=== PATIENT | female | born 1985 ===

== ENCOUNTER 2017-06-04 22:41 | Emergency (ER) | payer MEDICAID ==
[2017-06-04 22:41] VITALS: BMI 38.7
--- NOTE | 2017-06-04 23:33 | ED PDOC ---
HPI: Abdomen Time Seen by Provider: 06/04/17 23:24 Chief Complaint (Nursing): Headache Chief Complaint (Provider): abd pain, vomiting, hematemesis History Per: Patient Additional Complaint(s): 31-year-old female presents to emergency department with generalized abdominal pain that started 4 days ago but worse today. Patient states she vomited 3 times and noticed blood in vomit time. She has upper abdominal pain mostly localized epigastric region. Patient's also has migraine headache and took Advil but could not keep this down. PMD: [facility] Past Medical History Reviewed: Historical Data, Nursing Documentation, Vital Signs Vital Signs: Last Vital Signs Temp 98.2 F 06/04/17 23:04 Pulse Resp 16 06/04/17 23:04 BP 114/82 06/04/17 23:04 Pulse Ox - Medical History PMH: Migraine - Surgical History Surgical History: (x 2) - Family History Family History: States: No Known Family Hx - Living Arrangements Living Arrangements: With Family - Social History Current smoker - smoking cessation education provided: No Alcohol: None Drugs: Denies - Home Medications Home Medications: Ambulatory Orders Medication Instructions Recorded Multivitamin and [id number] 2 tab PO 06/29/14 [] - Allergies Allergies/Adverse Reactions: Allergies Allergy/AdvReac Type Severity Reaction Status Date / Time No Known Allergies Allergy Unverified 01/26/13 13:33 Review of Systems ROS Statement: Except As Marked, All Systems Reviewed And Found Negative Constitutional: Negative for: Fever, Chills Cardiovascular: Negative for: Chest Pain Respiratory: Positive for: Cough (slight) Gastrointestinal: Positive for: Nausea, Vomiting, Abdominal Pain, Hematemesis. Negative for: Diarrhea, Constipation, Melena, Hematochezia, Rectal Pain Neurological: Positive for: Headache. Negative for: Dizziness Physical Exam - Reviewed Nursing Documentation Reviewed: Yes Vital Signs Reviewed: Yes - Physical Exam Appears: Positive for: Well, Non-toxic, No Acute Distress Skin: Negative for: Rash Eye Exam: Positive for: Normal appearance, EOMI, PERRL Cardiovascular/Chest: Positive for: Regular Rate, Rhythm Respiratory: Positive for: Normal Breath Sounds Gastrointestinal/Abdominal: Positive for: Soft, Tenderness (epigastric ). Negative for: Distended, Guarding, Rebound Back: Negative for: L CVA Tenderness, R CVA Tenderness Extremity: Positive for: Normal ROM Neurologic/Psych: Positive for: Alert, Oriented Medical Decision Making Medical Decision Makin-year-old female with abdominal pain, hematemesis and headache Plan: Urine dip and test CBC CMP PT PTT CT abd and pelvis with IV contrast IVF IV zofran IV toradol Disposition - Clinical Impression Clinical Impression: Hematemesis, Abdominal pain - Patient ED Disposition Is Patient to be Admitted: Transfer of Care - Disposition Disposition: Transfer of Care Disposition Time: 23:57 Condition: STABLE Forms: [employer] (Mauritanian) Patient Signed Over To: Will Sims Handoff Comments: Signed out pending diagnostic testing results and final disposition
[2017-06-04] MEDS ORDERED: Sodium Chloride 0.9% 1,000 ML IV STA (23:34)
[2017-06-05 00:29] LABS: BASO # 0.1 K/uL (0.0-0.2); EOS # 0.1 K/uL (0.0-0.7); EOS % 0.9 % (0.0-4.0); HEMOGLOBIN 11.9 g/dL (12.0-16.0); LYMPH # 1.6 K/uL (1.0-4.3); LYMPH % 16.2 % (20.0-40.0); MEAN CORPUSCULAR HEMOGLOBIN 28.4 pg (27.0-31.0); MEAN CORPUSCULAR HGB CONC 33.8 g/dL (33.0-37.0); MEAN PLATELET VOLUME 8.2 fl (7.2-11.7); MONO # 0.4 K/uL (0.0-0.8); MONO % 4.2 % (0.0-10.0); NEUT # 7.7 K/uL (1.8-7.0); NEUT % 77.7 % (50.0-75.0); RBC 4.18 Mil/uL (3.80-5.20); RED CELL DISTRIBUTION WIDTH 12.9 % (11.5-14.5)
[2017-06-05 00:43] LABS: ALB/GLOB RATIO 1.2 (1.0-2.1); ALBUMIN 4.3 g/dL (3.5-5.0); ALT/SGPT 75 U/L (9-52); AST/SGOT 80 U/L (14-36); BLOOD UREA NITROGEN 13 mg/dl (7-17); CALCIUM 9.4 mg/dL (8.4-10.2); GFR AFRICAN-AMERICAN > 60; GFR NON-AFRICAN AMERICAN > 60
[2017-06-05 00:54] LABS: PARTIAL THROMBOPLASTIN TIME 31.1 Seconds (25.6-37.1); PROTHROMBIN TIME 11.3 Seconds (9.8-13.1)
[2017-06-05 01:19] VITALS: RESP 18; O2SAT 99
[2017-06-05] MEDS ORDERED: Sodium Chloride 0.9% 100 ML ONE (01:40)
[2017-06-05] MEDS ORDERED: Iohexol 300 100 ML IJ ONE (01:40)
--- NOTE | 2017-06-05 02:43 | CT ---
EXAM: CT Abdomen and Pelvis With Intravenous Contrast CLINICAL HISTORY: 31 years old, female; Pain; Abdominal pain; Epigastric; Additional info: Upper abd pain, hematemesis TECHNIQUE: Axial computed tomography images of the abdomen and pelvis with intravenous contrast. All CT scans at this facility use one or more dose reduction techniques, viz.: automated exposure control; ma/kV adjustment per patient size (including targeted exams where dose is matched to indication; i.e. head); or iterative reconstruction technique. Coronal and sagittal reformatted images were created and reviewed. CONTRAST: 95 mL of omnipaque administered intravenously. COMPARISON: No relevant prior studies available. FINDINGS: Lower thorax: No acute findings. ABDOMEN: Liver: There is a diffuse decrease in hepatic parenchymal density, consistent with fatty infiltration. The liver is enlarged measuring 23 cm. Gallbladder and bile ducts: The gallbladder is thick walled. No calcified stones. No ductal dilation. Pancreas: Unremarkable. No mass. No ductal dilation. Spleen: Unremarkable. No splenomegaly. Adrenals: Unremarkable. No mass. Kidneys and ureters: Unremarkable. No solid mass. No hydronephrosis. Stomach and bowel: Unremarkable. No obstruction. No mucosal thickening. Appendix: No findings to suggest acute appendicitis. Normal appendix. PELVIS: Bladder: Unremarkable. No mass. Reproductive: 1.9 cm low-density structure in the left pelvis consistent with an ovarian follicle. ABDOMEN and PELVIS: Intraperitoneal space: Unremarkable. No free air. No significant fluid collection. Bones/joints: No acute fracture. No dislocation. Soft tissues: Unremarkable. Vasculature: Unremarkable. No abdominal aortic aneurysm. Lymph nodes: Unremarkable. No enlarged lymph nodes. Tubes, lines and devices: An intrauterine device is present. IMPRESSION: Thick walled gallbladder. Clinical correlation with laboratory values recommended exclude acute cholecystitis. Right upper quadrant ultrasound could be obtained if clinically indicated. Fatty liver.
--- NOTE | 2017-06-05 03:25 | ED PDOC ---
- Laboratory Results Result Diagrams: 06/04/17 23:55 06/04/17 23:55 - ECG O2 Sat by Pulse Oximetry: 99 - Progress ED Course And Treament: 0000 Signed out to me pending labs and CT report. 0030 On my initial evaluation, pt. in no distress. States headache is present but has improved. Reports that she has not had any vomiting since coming to ED. Further states that last episode of vomiting had the smallest amount of blood since the vomiting began. Denies abdominal pain. 0242 CT abd/pelvis w/ IV contrast: Thick walled gallbladder. Clinical correlation with laboratory values recommended exclude acute cholecystitis. Right upper quadrant ultrasound could be obtained if clinically indicated. Fatty liver Patient informed of results and states that in 2013 she was dx with an "infection in my gallbladder" but was at that time and she refused surgery. Reports headache has completely resolved and that she does not have any pain in her abdomen. Abd soft and non-tender to deep palpation. Negative barreto's sign. Instructed to f/u with [facility] for further evaluation. Disposition - Clinical Impression Clinical Impression: Hematemesis, Acute headache - POA Present On Arrival: None - Disposition Disposition: Routine/Home Disposition Time: 02:42 Condition: STABLE Prescriptions: Metoclopramide [Reglan] 10 mg PO Q8 PRN #15 tab PRN Reason: nausea or headache Instructions: Headache, Adult (DC), Acute Headache (ED) Forms: Pager (Yi) Print Language: SLOVAK
[2017-06-05 03:30] VITALS: BP 112/64; PULSE 62; TEMP 98.3
--- NOTE | 2017-06-05 09:09 | RAD ---
HISTORY: cough COMPARISON: No prior. FINDINGS: LUNGS: No active pulmonary disease. PLEURA: No significant pleural effusion identified, no pneumothorax apparent. CARDIOVASCULAR: Normal. OSSEOUS STRUCTURES: No significant abnormalities. VISUALIZED UPPER ABDOMEN: Normal. OTHER FINDINGS: None. IMPRESSION: No acute cardiopulmonary disease appreciated.
== END 2017-06-05 03:38 | disposition home or self-care (01) ==
LOC: H.ER 22:41
DX: R10.9 Unspecified abdominal pain (principal); K92.0 Hematemesis; K76.0 Fatty (change of) liver, not elsewhere classified
CPT/HCPCS: 71045; 74177; 80053; 81025; 85025; 85610; 85730; 96374; 96375; 99285; J1885; J2405; J7040; Q9967

== ENCOUNTER 2018-07-15 11:26 | Emergency (ER) | payer SELFPAY ==
[2018-07-15 12:25] VITALS: BMI 33.5
[2018-07-15] MEDS ORDERED: Sodium Chloride 0.9% 1,000 ML IV STA (12:26)
--- NOTE | 2018-07-15 12:33 | ED PDOC ---
HPI: Headache Time Seen by Provider: 07/15/18 12:11 Chief Complaint (Nursing): Headache Chief Complaint (Provider): Headache History Per: Patient History/Exam Limitations: no limitations Onset/Duration Of Symptoms: Other (ongoing) Current Symptoms Are (Timing): Still Present Associated Symptoms: Photophobia, Nausea Additional Complaint(s): 32 year old female with a history of headaches that ongoing for the last 2 months since she stopped breast feeding. Patient reports the headaches are frequent with increased photophobia, sensitivity and localized with nausea. Currently, she is concerned and requests she would like a CT scan for further evaluation. Otherwise, she denies any other symptoms. Past Medical History Reviewed: Historical Data, Nursing Documentation, Vital Signs - Medical History PMH: Migraine - Surgical History Surgical History: (x 2) - Family History Family History: States: No Known Family Hx - Immunization History Hx Tetanus Toxoid Vaccination: No Hx Influenza Vaccination: Yes Hx Pneumococcal Vaccination: No - Home Medications Home Medications: Ambulatory Orders Medication Instructions Recorded Multivitamin and [id number] 2 tab PO 06/29/14 [] Metoclopramide [Reglan] 10 mg PO Q8 PRN #15 tab 06/05/17 Cephalexin [Keflex] 500 mg PO TID #15 capsule 07/15/18 - Allergies Allergies/Adverse Reactions: Allergies Allergy/AdvReac Type Severity Reaction Status Date / Time No Known Allergies Allergy Unverified 01/26/13 13:33 Review of Systems ROS Statement: Except As Marked, All Systems Reviewed And Found Negative Constitutional: Negative for: Fever, Chills Gastrointestinal: Positive for: Nausea. Negative for: Vomiting, Diarrhea Neurological: Positive for: Headache. Negative for: Change in Speech, Dizziness Physical Exam - Reviewed Nursing Documentation Reviewed: Yes Vital Signs Reviewed: Yes - Physical Exam Appears: Positive for: Well, Non-toxic, No Acute Distress Head Exam: Positive for: ATRAUMATIC, NORMAL INSPECTION, NORMOCEPHALIC Skin: Positive for: Normal Color, Warm, DRY Eye Exam: Positive for: EOMI, Normal appearance, PERRL Gastrointestinal/Abdominal: Positive for: Soft. Negative for: Tenderness Neurological/Psych: Positive for: Awake, Alert, Normal Tone, Symmetric/Intact Strength, Oriented (x3), Gait (steady). Negative for: Lethargic, Motor/Sensory Deficits, Facial Droop - Laboratory Results Result Diagrams: 07/15/18 12:42 04 12:42 Urine POC: Negative Urine dip results: Positive for: Leukocyte Esterase, Blood, Nitrate - ECG Pulse Ox Interpretation: Normal Medical Decision Making Medical Decision Making: Time: 12:16 Plan: ED urine dipstick Head w/ contrast CT CMP CBC w/ differential Normal saline 500 mls/hr Reglan 10mg Urine culture stat 12:16 Risks and benefits discussed with the patient who requests for a CT scan to be done. 12:49 Patient is now refusing a CT scan Scribe Attestation: Documented by Deb Anaya, acting as a scribe for Guille Grey PA-C. Provider Scribe Attestation: All medical record entries made by the Scribe were at my direction and personally dictated by me. I have reviewed the chart and agree that the record accurately reflects my personal performance of the history, physical exam, medical decision making, and the department course for this patient. I have also personally directed, reviewed, and agree with the discharge instructions and disposition. Disposition - Clinical Impression Clinical Impression: Migraine, UTI (urinary tract infection) - Patient ED Disposition Is Patient to be Admitted: No - Disposition Referrals: [facility] [Outside] Disposition: Routine/Home Disposition Time: 13:57 Condition: FAIR Prescriptions: Cephalexin [Keflex] 500 mg PO TID #15 capsule Instructions: Urinary Tract Infections in Adults, Migraine Headache (DC)
[2018-07-15 12:47] LABS: BASO # 0.1 K/uL (0.0-0.2); BASO % 1.1 % (0.0-2.0); EOS # 0.1 K/uL (0.0-0.7); EOS % 1.3 % (0.0-4.0); HEMOGLOBIN 12.5 g/dL (12.0-16.0); LYMPH # 2.7 K/uL (1.0-4.3); MEAN CORPUSCULAR HEMOGLOBIN 26.9 pg (27.0-31.0); MEAN CORPUSCULAR HGB CONC 32.4 g/dL (33.0-37.0); MEAN PLATELET VOLUME 8.1 fl (7.2-11.7); MONO # 0.5 K/uL (0.0-0.8); MONO % 5.8 % (0.0-10.0); NEUT % 63.8 % (50.0-75.0); RBC 4.65 Mil/uL (3.80-5.20); RED CELL DISTRIBUTION WIDTH 13.7 % (11.5-14.5); WHITE BLOOD COUNT 9.5 K/uL (4.8-10.8)
[2018-07-15 12:54] LABS: ALB/GLOB RATIO 1.2 (1.0-2.1); ALT/SGPT 95 U/L (9-52); AST/SGOT 202 U/L (14-36); BLOOD UREA NITROGEN 13 mg/dl (7-17); CALCIUM 10.2 mg/dL (8.4-10.2); GFR NON-AFRICAN AMERICAN > 60
[2018-07-15 13:51] VITALS: BP 108/74; PULSE 73; RESP 18; TEMP 98.2; O2SAT 99
== END 2018-07-15 14:00 | disposition home or self-care (01) ==
LOC: H.ER 11:26
DX: G43.909 Migraine, unspecified, not intractable, without status migrainosus (principal); N39.0 Urinary tract infection, site not specified
CPT/HCPCS: 80053; 81025; 85025; 87086; 87181; 96374; 99285; J2765; J7030